=== PATIENT | female | born 1960 | race Two or more races ===

== ENCOUNTER 2018-10-03 07:20 | Outpatient (CLI) | payer OTHER | END 2018-10-03 07:22 | disposition home or self-care (01) | LOC: SONOGRAMA 07:20 | DX: E04.2 Nontoxic multinodular goiter (principal) ==

== ENCOUNTER 2022-07-20 07:46 | Outpatient (CLI) | payer OTHER | END 2022-07-20 07:54 | disposition home or self-care (01) | LOC: SONOGRAMA 07:46 | PROVIDERS: ATTEND Pathology Anatomic Pathology & Clinical Pathology | DX: D34 Benign neoplasm of thyroid gland (principal); E06.3 Autoimmune thyroiditis; E04.9 Nontoxic goiter, unspecified; E04.1 Nontoxic single thyroid nodule ==